=== PATIENT | male | born 1935 | race Caucasian/White ===

== ENCOUNTER 2017-03-03 11:03 | Emergency (ER) | payer BC, MEDICARE ==
[~2017-03-03] VITALS: Ht 167.6 cm; Wt 72.6 kg
[~2017-03-03 11:03] MED LIST: ASPI-1152 PO; ATOR40TA29 PO; CLOP75TA15 PO; DIVA250T6 PO; DOCU250C14 PO; ERGO500014 PO; MULT1CAP34 PO; OLAN2.5T27 PO; OMEG1CAP18 PO; PSYL425P3 PO; VALS160T2 PO
[2017-03-03] MEDS ORDERED: ALLO100T PO (11:36)
[2017-03-03] MEDS ORDERED: [UNRECOGNIZED DRUG - OTHER] PO (11:36)
[2017-03-03] MEDS ORDERED: ESCI20TA PO (11:36)
[2017-03-03] MEDS ORDERED: ATOR20TA PO (11:36)
[2017-03-03] MEDS ORDERED: FURO20TA4 PO (11:36)
[2017-03-03] MEDS ORDERED: INSU3INS6 SQ (11:37)
[2017-03-03] MEDS ORDERED: BISM262T18 PO (11:37)
[2017-03-03] MEDS ORDERED: TRIA15CR2 TP (11:37)
[2017-03-03] MEDS ORDERED: INSU100C4 SQ (11:37)
[2017-03-03] MEDS ORDERED: POLY17PO4 PO (11:37)
[2017-03-03] MEDS ORDERED: DEXT15SY3 PO (11:37)
[2017-03-03] MEDS ORDERED: [UNRECOGNIZED DRUG - OTHER] PO (11:37)
[2017-03-03 11:48] LABS: BASOPHILS # (AUTO) 0.1 K/uL (0.0-8.0); BASOPHILS % (AUTO) 0.6 % (0.0-2.0); EOSINOPHILS # (AUTO) 0.1 K/uL (0.0-0.7); EOSINOPHILS % (AUTO) 0.6 % (0.0-7.0); HEMATOCRIT 37.9 % (36.7-47.1); HEMOGLOBIN 12.8 g/dL (12.5-16.3); MEAN CORPUSCULAR HEMOGLOBIN 31.2 uug (23.8-33.4); MEAN CORPUSCULAR HGB CONC 34 g/dL (32.5-36.3); MEAN CORPUSCULAR VOLUME 92.5 fL (73.0-96.2); MONOCYTES # (AUTO) 0.8 K/uL (2.0-10.0); MONOCYTES % (AUTO) 6.8 % (0.0-11.0); NEUTROPHILS # (AUTO) 8.3 K/uL (1.8-8.9); PLATELET COUNT (AUTO) 191 K/uL (152-348); WHITE BLOOD COUNT (AUTO) 11.2 K/uL (3.6-10.2)
[2017-03-03 11:59] LABS: CARBON DIOXIDE 31 mmol/L (21-32); CHLORIDE 104 mmol/L (98-107); CREATININE 1.5 mg/dL (0.6-1.3); GLUCOSE 164 mg/dL (74-106); POTASSIUM 4.7 mmol/L (3.5-5.1); UREA NITROGEN, BLOOD 22 mg/dL (7-18)
--- NOTE | 2017-03-03 12:45 | NUR ---
pt refused ti sign the d/c instruction, refused to get the resoursce info, started to yell and cursed, and hit the door trying to leave the er.
--- NOTE | 2017-03-03 13:38 | NUR ---
Patient discharged to home in stable conditon. Written and verbal after care instructions given. Patient verbalizes understanding of instructions.pt accompanied christine, a personel from the [facility] and care the pt comes from. pt eubreathing, no sign of distress at this time.
[2017-03-03 13:41] VITALS: BP 142/77
== END 2017-03-03 13:42 | disposition home or self-care (01) ==
LOC: ER 11:03
DX: S22.42XA Multiple fractures of ribs, left side, initial encounter for closed fracture (principal); I10 Essential (primary) hypertension; E78.5 Hyperlipidemia, unspecified; E11.9 Type 2 diabetes mellitus without complications; K44.9 Diaphragmatic hernia without obstruction or gangrene; Z79.4 Long term (current) use of insulin; Z79.82 Long term (current) use of aspirin; Z86.73 Personal history of transient ischemic attack (TIA), and cerebral infarction without residual deficits; W17.89XA Other fall from one level to another, initial encounter; Y93.89 Activity, other specified; Y92.89 Other specified places as the place of occurrence of the external cause; Y99.8 Other external cause status
CPT/HCPCS: 36415; 70450; 71250; 73090; 80048; 84484; 85025; 85730; 93005; 99285; A4663; 70030-TC

== ENCOUNTER 2018-03-05 11:39 | Emergency (ER) | payer MEDICARE, BC ==
[~2018-03-05] VITALS: Ht 167.6 cm; Wt 72.6 kg
[~2018-03-05 11:39] MED LIST changes: +ALLO100T PO; +ATOR20TA PO; -ATOR40TA29 PO; +BISM262T18 PO; +DEXT15SY3 PO; +DIVA-76 PO; -DIVA250T6 PO; +ESCI20TA PO; +FURO20TA4 PO; +INSU100C4 SQ; +INSU3INS6 SQ; +POLY17PO4 PO; +TRIA15CR2 TP; -VALS160T2 PO; +[UNRECOGNIZED DRUG - OTHER] PO; +[UNRECOGNIZED DRUG - OTHER] PO
[2018-03-05] MEDS ORDERED: IV NORMAL SALINE 500 ML BAG IV ONE (12:00)
[2018-03-05 12:12] LABS: BASOPHILS # (AUTO) 0.1 K/uL (0.0-8.0); EOSINOPHILS # (AUTO) 0.1 K/uL (0.0-0.7); EOSINOPHILS % (AUTO) 0.9 % (0.0-7.0); HEMATOCRIT 38.8 % (36.7-47.1); HEMOGLOBIN 13.1 g/dL (12.5-16.3); LYMPHOCYTES # (AUTO) 1.1 K/uL (20.0-40.0); MEAN CORPUSCULAR HEMOGLOBIN 31.7 uug (23.8-33.4); MEAN CORPUSCULAR HGB CONC 34 g/dL (32.5-36.3); MEAN CORPUSCULAR VOLUME 93.6 fL (73.0-96.2); MONOCYTES # (AUTO) 0.8 K/uL (2.0-10.0); MONOCYTES % (AUTO) 13.5 % (0.0-11.0); NEUTROPHILS # (AUTO) 4.1 K/uL (1.8-8.9); NEUTROPHILS % (AUTO) 66.6 % (38.5-71.5); PLATELET COUNT (AUTO) 151 K/uL (152-348); RED BLOOD CELL COUNT(AUTO) 4.14 MIL/uL (4.06-5.63); WHITE BLOOD COUNT (AUTO) 6.1 K/uL (3.6-10.2)
--- NOTE | 2018-03-05 12:17 | NUR ---
82 years old male presents to er by ambulance from nursing facility c/o weakness x1 week denies sob cp no nausea, vomiting, diarrhea.
[2018-03-05 12:19] LABS: CARBON DIOXIDE 28 mmol/L (21-32); CHLORIDE 100 mmol/L (98-107); CREATININE 1.3 mg/dL (0.6-1.3); GLUCOSE 208 mg/dL (74-106); POTASSIUM 4.4 mmol/L (3.5-5.1); UREA NITROGEN, BLOOD 18 mg/dL (7-18)
[2018-03-05 12:25] LABS: ALANINE AMINOTRANSFERASE 31 U/L (16-63); ALKALINE PHOSPHATASE 72 U/L (50-136); ASPARTATE AMINOTRANSFERASE 33 U/L (15-37); BILIRUBIN,DIRECT 0.1 mg/dL (0.0-0.2); BILIRUBIN,TOTAL 0.7 mg/dL (0.2-1.0); TOTAL PROTEIN, SERUM 7.4 g/dL (6.4-8.2)
[2018-03-05 12:26] LABS: ACETAMINOPHEN < 2.0 ug/mL (10-30)
[2018-03-05 12:39] LABS: ETHANOL < 3 MG/DL (0-0)
[2018-03-05 12:51] LABS: THYROID STIMULATING HORMONE 1.958 mIU/mL (0.358-3.740)
[2018-03-05] MEDS ORDERED: [UNRECOGNIZED DRUG - SUPPLY] EACH EAR (12:56)
[2018-03-05] MEDS ORDERED: BISM262T15 PO (12:56)
[2018-03-05] MEDS ORDERED: BLOO-140 IN (12:56)
[2018-03-05] MEDS ORDERED: [UNRECOGNIZED DRUG - OTHER] PO (12:56)
[2018-03-05] MEDS ORDERED: ASPI81TA31 PO (12:56)
[2018-03-05] MEDS ORDERED: INSU100V7 SQ (12:56)
[2018-03-05] MEDS ORDERED: OLAN2.5T3 PO (12:56)
[2018-03-05] MEDS ORDERED: TRIA15CR2 TP (12:56)
[2018-03-05] MEDS ORDERED: CLOP75TA15 PO (12:56)
[2018-03-05] MEDS ORDERED: PSYL660P17 PO (12:56)
[2018-03-05] MEDS ORDERED: [UNRECOGNIZED DRUG - OTHER] PO (12:56)
[2018-03-05] MEDS ORDERED: CHOL200078 PO (12:56)
[2018-03-05 13:00] LABS: *BILIRUBIN,URIN NEGATIVE (NEGATIVE); *BLOOD, URINE 1+ (NEGATIVE); *CLARITY,URINE CLEAR (CLEAR); *KETONES,URINE NEGATIVE (NEGATIVE); *UROBILINOGEN,URINE 0.2 E.U./dl (NORMAL); LEUKOCYTE ESTERASE ,URINE NEGATIVE (NEGATIVE); NITRITE, URINE NEGATIVE (NEGATIVE); PH,URINE 7.5 (5.0-8.0); UGLUCOSE NEGATIVE (NEGATIVE)
[2018-03-05 13:01] LABS: *COLOR,URINE LIGHT YELLOW (YELLOW)
[2018-03-05 13:05] LABS: BACTERIA,URINE NONE SEEN /HPF (NONE SEEN); SQUAMOUS EPITHELIAL CELL,UR FEW /HPF (NONE SEEN); WBC,URINE 0-3 /HPF (0-3)
[2018-03-05 13:10] LABS: *AMPHETAMINE, URINE NEGATIVE (NEGATIVE); *BARBITURATE, URINE NEGATIVE (NEGATIVE); *CANNABINOID, URINE NEGATIVE (NEGATIVE); *COCCAINE, URINE NEGATIVE (NEGATIVE); *OPIATE, URINE NEGATIVE (NEGATIVE); *PHENCYCLIDINE SCREEN,URINE NEGATIVE (NEGATIVE)
[2018-03-05 13:33] VITALS: BP 150/70
--- NOTE | 2018-03-05 13:35 | NUR ---
patient condition improved d/c home with instructions after care reviewed with son he verbalizes understanding drive father home.chronic weakness/total care.
== END 2018-03-05 14:00 | disposition home or self-care (01) ==
LOC: ER 11:39
DX: R53.1 Weakness (principal); I10 Essential (primary) hypertension; E78.5 Hyperlipidemia, unspecified; E11.9 Type 2 diabetes mellitus without complications; Z79.4 Long term (current) use of insulin; Z79.82 Long term (current) use of aspirin; Z79.01 Long term (current) use of anticoagulants; Z79.899 Other long term (current) drug therapy
CPT/HCPCS: 36415; 70450; 71045; 80048; 80076; 80307; 81001; 82140; 83605; 84443; 84484; 85025; 85730; 87040; 87086; 93005; 99284; G0480 ×2; G0481; 70030-TC; A4663; C1758; J7040

== ENCOUNTER 2018-11-13 13:45 | Inpatient (IN) | payer BC, MEDICARE ==
[~2018-11-13] VITALS: Ht 172.7 cm; Wt 72.6 kg
[~2018-11-13 13:45] MED LIST changes: -ASPI-1152 PO; +ASPI81TA31 PO; +BISM262T15 PO; -BISM262T18 PO; +BLOO-140 IN; +CHOL200078 PO; -INSU100C4 SQ; +INSU100V7 SQ; -INSU3INS6 SQ; -OLAN2.5T27 PO; +OLAN2.5T3 PO; -PSYL425P3 PO; +PSYL660P17 PO; +[UNRECOGNIZED DRUG - OTHER] PO; +[UNRECOGNIZED DRUG - OTHER] PO; -[UNRECOGNIZED DRUG - OTHER] PO; -[UNRECOGNIZED DRUG - OTHER] PO; +[UNRECOGNIZED DRUG - SUPPLY] EACH EAR
[2018-11-13 14:11] LABS: BASOPHILS # (AUTO) 0.1 K/uL (0.0-8.0); BASOPHILS % (AUTO) 1.1 % (0.0-2.0); EOSINOPHILS % (AUTO) 0.2 % (0.0-7.0); HEMATOCRIT 37.9 % (36.7-47.1); HEMOGLOBIN 12.7 g/dL (12.5-16.3); LYMPHOCYTES # (AUTO) 1.1 K/uL (20.0-40.0); MEAN CORPUSCULAR HEMOGLOBIN 30.9 uug (23.8-33.4); MEAN CORPUSCULAR HGB CONC 34 g/dL (32.5-36.3); MEAN CORPUSCULAR VOLUME 92.3 fL (73.0-96.2); MONOCYTES % (AUTO) 10.6 % (0.0-11.0); NEUTROPHILS # (AUTO) 7.5 K/uL (1.8-8.9); NEUTROPHILS % (AUTO) 77.1 % (38.5-71.5); PLATELET COUNT (AUTO) 208 K/uL (152-348); RED BLOOD CELL COUNT(AUTO) 4.11 MIL/uL (4.06-5.63); WHITE BLOOD COUNT (AUTO) 9.8 K/uL (3.6-10.2)
[2018-11-13 14:19] LABS: CARBON DIOXIDE 21 mmol/L (21-32); CHLORIDE 100 mmol/L (98-107); CREATININE 1.4 mg/dL (0.6-1.3); GLUCOSE 210 mg/dL (74-106); POTASSIUM 4.1 mmol/L (3.5-5.1); UREA NITROGEN, BLOOD 28 mg/dL (7-18)
[2018-11-13] MEDS ORDERED: IV NORMAL SALINE 1000 ML BAG IV ONE ×2 (14:30→15:30)
[2018-11-13 14:31] LABS: ALANINE AMINOTRANSFERASE 27 U/L (16-63); ALKALINE PHOSPHATASE 68 U/L (50-136); ASPARTATE AMINOTRANSFERASE 33 U/L (15-37); BILIRUBIN,DIRECT 0.1 mg/dL (0.0-0.2); BILIRUBIN,TOTAL 0.4 mg/dL (0.2-1.0); TOTAL PROTEIN, SERUM 6.8 g/dL (6.4-8.2)
[2018-11-13 15:13] LABS: *BILIRUBIN,URIN 1+ (NEGATIVE); *BLOOD, URINE 2+ (NEGATIVE); *CLARITY,URINE CLOUDY (CLEAR); *COLOR,URINE YELLOW (YELLOW); *KETONES,URINE 1+ (NEGATIVE); *UROBILINOGEN,URINE 0.2 E.U./dl (NORMAL); LEUKOCYTE ESTERASE ,URINE 2+ (NEGATIVE); NITRITE, URINE NEGATIVE (NEGATIVE); PH,URINE 5.5 (5.0-8.0); UGLUCOSE NEGATIVE (NEGATIVE)
[2018-11-13] MEDS ORDERED: POTA10CA43 PO (15:18)
[2018-11-13] MEDS ORDERED: MEGE20TA PO (15:18)
[2018-11-13] MEDS ORDERED: CEFTRIAXONE 1 G VIAL ONE (15:25)
[2018-11-13] MEDS ORDERED: IV NORMAL SALINE 500 ML BAG IV ONE (15:30)
[2018-11-13] MEDS ORDERED: CEFTRIAXONE 1 G in IV DEXTROSE 5% 50 ML IV ONE (15:30)
[2018-11-13 15:53] LABS: BACTERIA,URINE MANY /HPF (NONE SEEN); SQUAMOUS EPITHELIAL CELL,UR FEW /HPF (NONE SEEN); WBC,URINE 50-80 /HPF (0-3)
[2018-11-13] MEDS ORDERED: MIRALAX 17 GM POWD.PACK PO PRN (16:30)
--- NOTE | 2018-11-13 16:41 | NUR ---
PT TRANSFERED TO FLOOR IN STABLE CONDITION.
[2018-11-13] MEDS ORDERED: Z GUARD REMEDY PASTE 57 GM TUBE TOP PRN (16:45)
[2018-11-13] MEDS ORDERED: HYDROCODONE/APAP 5-325MG TABLET PO PRN (16:45)
[2018-11-13] MEDS ORDERED: ONDANSETRON 4 MG/2 ML VIAL IV PRN (16:45)
[2018-11-13] MEDS ORDERED: ZOLPIDEM 5 MG TABLET PO PRN (16:45)
[2018-11-13] MEDS ORDERED: ENOXAPARIN SODIUM 30 MG/0.3 ML DISP.SYRIN SQ SCH ×2 (16:45→17:45)
[2018-11-13] MEDS ORDERED: MAGNESIUM HYDROXIDE 30 ML LIQUID UDC PO PRN (16:45)
[2018-11-13] MEDS ORDERED: ACETAMINOPHEN 325 MG TABLET PO PRN (16:45)
--- NOTE | 2018-11-13 16:45 | NUR ---
ADMITTED FROM [facility] AN 82 YO MALE WITH ADM DX OF UTI AND ELEVATED BNP. AWAKE ALERT AND VERBALLY RESPONSIVE KNOWS ONLY HIS NAME. NO SS OF PAIN OR DISTRESS. ROUTINE ADM ASSESSMENT INITIATED. ADMISSION ORDERS DONE BY DR Mike GALICIA
[2018-11-13] MEDS: DIVALPROEX 250 MG TABLET.DR PO SCH (17:46)
[2018-11-13] MEDS: MULTIVITAMINS,THERAPEUTIC TABLET PO SCH (17:46)
[2018-11-13] MEDS: IV NS 1000 ML 1,000 ML IV PRN (17:50)
--- NOTE | 2018-11-13 19:15 | NUR ---
RECEIVED BEDSIDE REPORT FROM AM NURSE. PATIENT AWAKE ALERT AND VERBALLY RESPONSIVE. KNOWS HIS NAME AND THAT HE CAME FROM [facility]. ABLE TO ANSWER SIMPLE QUESTIONS BUT WITH NOTED FORGETFULNESS. DENIES ANY PAIN OR DISCOMFORT. AFEBRILE DURING INITIAL VS CHECK. SINUS RHYTHM ON TELE. IVF RUNNING ON R FOREARM G 20 WITH 75 CC/HR NS. NO SIGNS OF SOB NOTED. BREATHING EVEN AND UNLABORED ON ROOM AIR. SKIN ISSUES NOTED, TREATMENTS IN PLACE. WILL CONTINUE TO MONITOR
[2018-11-13 20:01] VITALS: BP 111/59
[2018-11-13] MEDS: CLOPIDOGREL 75 MG TABLET PO SCH (20:41)
[2018-11-13] MEDS: ATORVASTATIN 10 MG TABLET PO SCH (20:41)
[2018-11-13] MEDS: OLANZAPINE 2.5 MG TABLET PO SCH (20:41)
[2018-11-13] MEDS: INSULIN GLARGINE,HUM 300 UNITS/3 ML CARTRIDGE SQ SCH (21:45)
[2018-11-14 00:55] VITALS: BP 115/60
[2018-11-14 04:00] VITALS: BP 156/91
--- NOTE | 2018-11-14 05:54 | NUR ---
PT SLEPT THROUGH THE NIGHT WITH NO ACUTE DISTRESS. WITH 2X URINE OUTPUT IN DIAPER. BREATHING EVEN AND UNLABORED. WILL CONTINUE TO MONITOR.
[2018-11-14] MEDS: IV NS 1000 ML 1,000 ML IV PRN ×2 (06:31→20:44)
[2018-11-14 06:37] LABS: BASOPHILS # (AUTO) 0.1 K/uL (0.0-8.0); BASOPHILS % (AUTO) 0.9 % (0.0-2.0); EOSINOPHILS # (AUTO) 0.2 K/uL (0.0-0.7); HEMATOCRIT 35.8 % (36.7-47.1); HEMOGLOBIN 11.8 g/dL (12.5-16.3); LYMPHOCYTES # (AUTO) 1.7 K/uL (20.0-40.0); LYMPHOCYTES % (AUTO) 22.7 % (20.5-51.5); MEAN CORPUSCULAR HEMOGLOBIN 30.7 uug (23.8-33.4); MEAN CORPUSCULAR HGB CONC 33 g/dL (32.5-36.3); MEAN CORPUSCULAR VOLUME 92.7 fL (73.0-96.2); MONOCYTES % (AUTO) 13.1 % (0.0-11.0); NEUTROPHILS # (AUTO) 4.5 K/uL (1.8-8.9); NEUTROPHILS % (AUTO) 60.3 % (38.5-71.5); PLATELET COUNT (AUTO) 194 K/uL (152-348); RED BLOOD CELL COUNT(AUTO) 3.86 MIL/uL (4.06-5.63); WHITE BLOOD COUNT (AUTO) 7.5 K/uL (3.6-10.2)
[2018-11-14 07:04] LABS: CARBON DIOXIDE 25 mmol/L (21-32); CHLORIDE 109 mmol/L (98-107); CREATININE 1.1 mg/dL (0.6-1.3); GLUCOSE 116 mg/dL (74-106); MAGNESIUM 1.7 mg/dL (1.8-2.4); PHOSPHOROUS 3.1 mg/dL (2.5-4.9); POTASSIUM 3.4 mmol/L (3.5-5.1); UREA NITROGEN, BLOOD 21 mg/dL (7-18)
--- NOTE | 2018-11-14 07:30 | NUR ---
RECEIVED PATIENT ASLEEP AROUSES EASILY HE IS ALERT TO SELF WITH CONFUSSION ALL NEEDS ANTICIPATED AND SATISFIED REQUIRES MAX ASSIST FOR ALL ADL TURNED AND REPOSITIONED Q2H HEELS FLOATED REMAIN ON IVF ORDERED WITH NO S/S OF INFILTERATION ON SITE TELE WITH SR WITH INVERTED T WAVE MADE COMFORTABLE AND WILL CONTINUE TO OBSERVE.
[2018-11-14 07:50] LABS: THYROID STIMULATING HORMONE 1.001 mIU/mL (0.358-3.740)
[2018-11-14] MEDS: POTASSIUM CHLORIDE 10 MEQ TAB.PRT.SR PO SCH (08:41)
[2018-11-14] MEDS: MULTIVITAMINS,THERAPEUTIC TABLET PO SCH ×2 (08:42→16:28)
[2018-11-14] MEDS: MEGESTROL ACETATE 20 MG TABLET PO SCH (08:42)
[2018-11-14] MEDS: DIVALPROEX 250 MG TABLET.DR PO SCH ×2 (08:42→16:28)
[2018-11-14] MEDS: ESCITALOPRAM OXALATE 10 MG TABLET PO SCH (08:42)
[2018-11-14] MEDS: ALLOPURINOL 100 MG TABLET PO SCH (08:42)
[2018-11-14] MEDS: CHOLECALCIFEROL 1,000 UNIT TABLET PO SCH (08:42)
[2018-11-14] MEDS: DOCUSATE SODIUM 250 MG CAPSULE PO SCH (08:42)
[2018-11-14] MEDS ORDERED: MAGNESIUM OXIDE 400 MG TABLET PO ONE (08:45)
[2018-11-14] MEDS ORDERED: POTASSIUM CHLORIDE 20 MEQ TAB.PRT.SR PO ONE (08:45)
[2018-11-14 10:20] LABS: CHOLESTEROL 97 mg/dL (<200); HDL CHOLESTEROL 25 mg/dL (40-60); TRIGLYCERIDES 66 MG/DL (30-150)
--- NOTE | 2018-11-14 11:00 | NUR ---
POTASSIUM LEVEL IS 3.4 AND MAG IS 1.7 SEEN BT NICO INTAKE MANAGER WITH NEW ORDERS AND NOTED.
[2018-11-14 11:02] VITALS: BP 135/80
[2018-11-14] MEDS ORDERED: DEXTROSE 50% 50 ML DISP.SYRIN IV PRN (12:00)
[2018-11-14 15:24] VITALS: BP 143/88
[2018-11-14] MEDS: CEFTRIAXONE 1 G in IV DEXTROSE 5% 50 ML IV SCH (16:07)
[2018-11-14] MEDS: BLOOD SUGAR DIAGNOSTIC 1 EACH STRIP VI SCH ×2 (16:16→21:20)
[2018-11-14] MEDS: INSULIN REGULAR, HUMAN 300 UNIT/3 ML VIAL SQ PRN ×2 (16:17→21:24)
--- NOTE | 2018-11-14 17:30 | NUR ---
AWAKE ALERT WITH FORGETFULNESS AND CONFUSSION AT TIMES ALL NEEDS ANTICIPATED AND SATISFIED.ECHO IS 40 PERCENT EF WAS SEEN BY THE ANALYTICS ASSOCIATE WITH NO NEW ORDERS AT THIS TIME.WILL CONTINUE TO OBSERVE
--- NOTE | 2018-11-14 18:00 | NUR ---
PATIENT HAS A POLST IN THE CHART FOR DNR/DNI CONFIRMED BY THE HORTICULTURE PROFESSOR OF THE [facility] NICO NOTIFIED WITH NEW ORDERS
--- NOTE | 2018-11-14 19:30 | NUR ---
Received patient resting in bed. Patient is A/Ox1. No signs of acute distress noted. No signs of pain or SOB, patient is 96% on room air. Vitals WNL. IVF running on the right forearm. no s/s of infection or infiltration. Safety measures initiated. Bed is low and locked, call light within reach, bed alarm on. Will continue to monitor.
[2018-11-14 20:12] VITALS: BP_SYST 14; BP_SYST 142; BP_DIAS 79
[2018-11-14] MEDS: OLANZAPINE 2.5 MG TABLET PO SCH (21:12)
[2018-11-14] MEDS: INSULIN GLARGINE,HUM 300 UNITS/3 ML CARTRIDGE SQ SCH (21:22)
[2018-11-15 00:05] VITALS: BP 133/75
[2018-11-15 04:00] VITALS: BP 125/64
--- NOTE | 2018-11-15 05:51 | NUR ---
Patient slept well. Patient was compliant with care. No distress noted. Safety measures given. Will endorse to next shift.
[2018-11-15] MEDS: BLOOD SUGAR DIAGNOSTIC 1 EACH STRIP VI SCH ×4 (06:40→21:14)
[2018-11-15 06:47] LABS: BASOPHILS % (AUTO) 0.5 % (0.0-2.0); EOSINOPHILS # (AUTO) 0.3 K/uL (0.0-0.7); EOSINOPHILS % (AUTO) 3.2 % (0.0-7.0); HEMATOCRIT 36.2 % (36.7-47.1); HEMOGLOBIN 12.5 g/dL (12.5-16.3); LYMPHOCYTES # (AUTO) 2.1 K/uL (20.0-40.0); LYMPHOCYTES % (AUTO) 20.9 % (20.5-51.5); MEAN CORPUSCULAR HEMOGLOBIN 31.9 uug (23.8-33.4); MEAN CORPUSCULAR HGB CONC 35 g/dL (32.5-36.3); MEAN CORPUSCULAR VOLUME 92.5 fL (73.0-96.2); MONOCYTES # (AUTO) 1.2 K/uL (2.0-10.0); MONOCYTES % (AUTO) 11.8 % (0.0-11.0); NEUTROPHILS # (AUTO) 6.5 K/uL (1.8-8.9); NEUTROPHILS % (AUTO) 63.6 % (38.5-71.5); PLATELET COUNT (AUTO) 203 K/uL (152-348); RED BLOOD CELL COUNT(AUTO) 3.91 MIL/uL (4.06-5.63); WHITE BLOOD COUNT (AUTO) 10.2 K/uL (3.6-10.2)
[2018-11-15 06:50] LABS: CARBON DIOXIDE 25 mmol/L (21-32); CHLORIDE 107 mmol/L (98-107); CREATININE 1.1 mg/dL (0.6-1.3); GLUCOSE 117 mg/dL (74-106); MAGNESIUM 1.8 mg/dL (1.8-2.4); UREA NITROGEN, BLOOD 20 mg/dL (7-18)
[2018-11-15] MEDS: ALLOPURINOL 100 MG TABLET PO SCH (08:34)
[2018-11-15] MEDS: DIVALPROEX 250 MG TABLET.DR PO SCH ×2 (08:34→16:29)
[2018-11-15] MEDS: ESCITALOPRAM OXALATE 10 MG TABLET PO SCH (08:34)
[2018-11-15] MEDS: MEGESTROL ACETATE 20 MG TABLET PO SCH (08:34)
[2018-11-15] MEDS: MULTIVITAMINS,THERAPEUTIC TABLET PO SCH ×2 (08:34→16:30)
[2018-11-15] MEDS: DOCUSATE SODIUM 250 MG CAPSULE PO SCH (08:34)
[2018-11-15] MEDS: POTASSIUM CHLORIDE 10 MEQ TAB.PRT.SR PO SCH (08:34)
[2018-11-15] MEDS: CHOLECALCIFEROL 1,000 UNIT TABLET PO SCH (08:35)
[2018-11-15] MEDS ORDERED: ASPIRIN 81 MG TAB.CHEW PO SCH (09:00)
[2018-11-15] MEDS ORDERED: ATORVASTATIN 20 MG TABLET PO SCH (09:00)
[2018-11-15 11:12] VITALS: BP 131/79
[2018-11-15] MEDS: METOPROLOL SUCCINATE XL 25 MG TAB.SR.24H PO SCH (11:25)
[2018-11-15] MEDS: INSULIN REGULAR, HUMAN 300 UNIT/3 ML VIAL SQ PRN ×2 (12:22→18:07)
[2018-11-15] MEDS: CEFTRIAXONE 1 G in IV DEXTROSE 5% 50 ML IV SCH (15:01)
[2018-11-15 15:04] VITALS: BP 144/87
--- NOTE | 2018-11-15 18:55 | NUR ---
patient in bed resting, IV heplock intact and patent, no c/o pain at this time. no s/s of acute distress noted will continue to monitor call light within reached. all needs attended
--- NOTE | 2018-11-15 19:00 | NUR ---
patient received up in bed alert and awake, patient is in no distress at this time. iv site is patent and intact. turned and repositioned. bed is locked with bed alarm on, call light within reach. remains afebrile. will continue to monitor
[2018-11-15 20:13] VITALS: BP 151/81
[2018-11-15] MEDS: OLANZAPINE 2.5 MG TABLET PO SCH (21:14)
[2018-11-15] MEDS: CLOPIDOGREL 75 MG TABLET PO SCH (21:14)
[2018-11-15] MEDS: ATORVASTATIN 10 MG TABLET PO SCH (21:14)
[2018-11-15] MEDS: INSULIN GLARGINE,HUM 300 UNITS/3 ML CARTRIDGE SQ SCH (21:23)
[2018-11-16 04:54] VITALS: BP 143/72
[2018-11-16 06:34] LABS: CARBON DIOXIDE 25 mmol/L (21-32); CHLORIDE 108 mmol/L (98-107); CREATININE 1.1 mg/dL (0.6-1.3); GLUCOSE 177 mg/dL (74-106); UREA NITROGEN, BLOOD 21 mg/dL (7-18)
[2018-11-16] MEDS: BLOOD SUGAR DIAGNOSTIC 1 EACH STRIP VI SCH ×2 (06:35→11:44)
[2018-11-16 06:37] LABS: BASOPHILS # (AUTO) 0.1 K/uL (0.0-8.0); BASOPHILS % (AUTO) 0.5 % (0.0-2.0); EOSINOPHILS # (AUTO) 0.3 K/uL (0.0-0.7); EOSINOPHILS % (AUTO) 3.2 % (0.0-7.0); HEMATOCRIT 34.8 % (36.7-47.1); HEMOGLOBIN 11.9 g/dL (12.5-16.3); LYMPHOCYTES # (AUTO) 2.2 K/uL (20.0-40.0); LYMPHOCYTES % (AUTO) 20.9 % (20.5-51.5); MEAN CORPUSCULAR HEMOGLOBIN 31.8 uug (23.8-33.4); MEAN CORPUSCULAR HGB CONC 34 g/dL (32.5-36.3); MEAN CORPUSCULAR VOLUME 92.5 fL (73.0-96.2); MONOCYTES # (AUTO) 1.2 K/uL (2.0-10.0); MONOCYTES % (AUTO) 11.1 % (0.0-11.0); NEUTROPHILS # (AUTO) 6.7 K/uL (1.8-8.9); NEUTROPHILS % (AUTO) 64.3 % (38.5-71.5); PLATELET COUNT (AUTO) 205 K/uL (152-348); RED BLOOD CELL COUNT(AUTO) 3.76 MIL/uL (4.06-5.63); WHITE BLOOD COUNT (AUTO) 10.4 K/uL (3.6-10.2)
--- NOTE | 2018-11-16 07:48 | NUR ---
RECEIVED PT RESTING. NO ACUTE DISTRESS OR SOB NOTED. SAFETY MEASURES IMPLEMENTED. CALL LIGHT WITHIN REACH. PT TURNED AND REPOSITIONED. IV PATENT. BED IN LOWEST POSITION, LOCKED WITH ALARM ON. WILL CONTINUE TO MONITOR.
[2018-11-16] MEDS: INSULIN REGULAR, HUMAN 300 UNIT/3 ML VIAL SQ PRN ×2 (08:26→11:50)
[2018-11-16] MEDS: ESCITALOPRAM OXALATE 10 MG TABLET PO SCH (08:37)
[2018-11-16] MEDS: POTASSIUM CHLORIDE 10 MEQ TAB.PRT.SR PO SCH (08:37)
[2018-11-16] MEDS: MEGESTROL ACETATE 20 MG TABLET PO SCH (08:37)
[2018-11-16] MEDS: DIVALPROEX 250 MG TABLET.DR PO SCH (08:38)
[2018-11-16] MEDS: MULTIVITAMINS,THERAPEUTIC TABLET PO SCH (08:38)
[2018-11-16] MEDS: METOPROLOL SUCCINATE XL 25 MG TAB.SR.24H PO SCH (08:38)
[2018-11-16] MEDS: CHOLECALCIFEROL 1,000 UNIT TABLET PO SCH (08:38)
[2018-11-16] MEDS: DOCUSATE SODIUM 250 MG CAPSULE PO SCH (08:38)
[2018-11-16] MEDS: ALLOPURINOL 100 MG TABLET PO SCH (08:38)
[2018-11-16 11:58] VITALS: BP 132/70
--- NOTE | 2018-11-16 12:00 | NUR ---
PT RESTING IN BED COMFORTABLY. NO ACUTE DISTRESS NOTED. NO SOB NOTED. CALL LIGHT WITHIN REACH. PT IS MEDICATION COMPLIANT. SAFETY MEASURES IMPLEMENTED. BED IN LOW POSITION, LOCKED WITH ALARM ON. WILL CONTINUE TO MONITOR.
[2018-11-16] MEDS ORDERED: SULF1TAB48 PO (12:52)
--- NOTE | 2018-11-16 13:00 | NUR ---
ORDER FOR DISCHARGE RECEIVED.
--- NOTE | 2018-11-16 15:30 | NUR ---
PT DISCHARGED TO [facility]. NO ACUTE DISTRESS NOTED. NO SOB NOTED. IV LINE REMOVED INTACT. WOUND PICTURES TAKEN AND PLACED IN PT'S CHART. DISCHARGE INSTRUCTIONS AND Rx GIVEN TO [facility]ARD AND CARE STAFF. PT ESCORTED VIA WHEELCHAIR TO HOSPITAL MAIN ENTRANCE BY HOSPITAL STAFF. PT TRANSPORTED TO BOARD AND CARE VIA PRIVATE VEHICLE. BELONGINGS RETURNED.
== END 2018-11-16 19:00 | disposition home health service (06) | DRG 682 ==
LOC: ER 13:45 → TELE3 16:27 → MEDSURG3 11-15 11:32
DX: N17.8 Other acute kidney failure (principal); I21.A1 Myocardial infarction type 2; N39.0 Urinary tract infection, site not specified; E44.0 Moderate protein-calorie malnutrition; Z66 Do not resuscitate; I25.5 Ischemic cardiomyopathy; B96.20 Unspecified Escherichia coli [E. coli] as the cause of diseases classified elsewhere; E78.5 Hyperlipidemia, unspecified; F39 Unspecified mood [affective] disorder; E11.9 Type 2 diabetes mellitus without complications; Z86.73 Personal history of transient ischemic attack (TIA), and cerebral infarction without residual deficits; Z79.899 Other long term (current) drug therapy; E86.0 Dehydration; I67.2 Cerebral atherosclerosis; K44.9 Diaphragmatic hernia without obstruction or gangrene; Z79.82 Long term (current) use of aspirin; I10 Essential (primary) hypertension; F32.9 Major depressive disorder, single episode, unspecified; F03.90 Unspecified dementia, unspecified severity, without behavioral disturbance, psychotic disturbance, mood disturbance, and anxiety; I25.10 Atherosclerotic heart disease of native coronary artery without angina pectoris; Z79.4 Long term (current) use of insulin
CPT/HCPCS: 36415; 70030-TC; 70450; 71045; 80164; 83605; 83735; 84100; 84443; 85025; 85730; 87040; 87077; 87086; 93005; 93307; A4663; C1758; G0378; J0696; J1815; J3490; J7030; J7060; J8499